=== PATIENT | female | born 1975 | race Two or more races ===

== ENCOUNTER 2019-04-16 20:39 | Emergency (ER) | payer OTHER, MEDICAID ==
[~2019-04-16] VITALS: Ht 162.6 cm; Wt 64.4 kg
[2019-04-16 21:19] VITALS: BP 120/81
[2019-04-16] MEDS ORDERED: DexAMETHasone SOD PHOS 10MG/1ML VIAL INJ IM ONE (23:45)
[2019-04-16] MEDS ORDERED: HYDROcodone-ACET 10/325MG TAB PO ONE (23:45)
[2019-04-16] MEDS ORDERED: BACLOFEN 10 MG TAB PO ONE (23:45)
== END 2019-04-17 00:46 | disposition home or self-care (01) ==
LOC: ER 20:39
DX: S33.5XXA Sprain of ligaments of lumbar spine, initial encounter (principal); Z88.6 Allergy status to analgesic agent; Z88.8 Allergy status to other drugs, medicaments and biological substances; X58.XXXA Exposure to other specified factors, initial encounter; Y93.9 Activity, unspecified; Y99.8 Other external cause status; Y92.89 Other specified places as the place of occurrence of the external cause
CPT/HCPCS: 72100; 96372; 99283; J1100; J7030

== ENCOUNTER 2022-08-30 13:35 | Emergency (ER) | payer MEDICAID, OTHER ==
[~2022-08-30] VITALS: Ht 162.6 cm; Wt 72.5 kg
[2022-08-30 14:09] VITALS: BP 110/75
[2022-08-30] MEDS ORDERED: methylPREDNISolone SOD SUCC 125 MG/2 ML VL IM ONE (14:30)
[2022-08-30] MEDS ORDERED: ALBUTEROL SULF 2.5 MG/0.5ML(0.5%) NEB SOLN NEB ONE (14:30)
[2022-08-30] MEDS ORDERED: ALBUTEROL MEDNEB 2.5 mg/3ml NEB ONE (14:39)
[2022-08-30] MEDS ORDERED: PRED20TA2 PO (15:48)
[2022-08-30] MEDS ORDERED: AMOX-277 PO (15:48)
== END 2022-08-30 15:57 | disposition home or self-care (01) ==
LOC: ER 13:35
DX: J45.901 Unspecified asthma with (acute) exacerbation (principal); H65.93 Unspecified nonsuppurative otitis media, bilateral; F41.9 Anxiety disorder, unspecified
CPT/HCPCS: 71045; 96372; 99283; J2930

== ENCOUNTER 2022-09-03 21:06 | Emergency (ER) | payer MEDICAID ==
[~2022-09-03] VITALS: Ht 162.6 cm; Wt 70.5 kg
[~2022-09-03 21:06] MED LIST: AMOX-277 PO; PRED20TA2 PO
[2022-09-03] MEDS ORDERED: ALBUTEROL MEDNEB 2.5 mg/3ml NEB ONE (22:53)
[2022-09-03] MEDS ORDERED: IPRATROPIUM BROM 0.5 MG/2.5ML INH SOL NEB ONE (23:00)
[2022-09-03] MEDS ORDERED: ALBUTEROL SULF 2.5 MG/0.5ML(0.5%) NEB SOLN NEB ONE (23:00)
[2022-09-03] MEDS ORDERED: methylPREDNISolone SOD SUCC 125 MG/2 ML VL IM ONE (23:00)
[2022-09-03] MEDS ORDERED: FLUT1AER3 IN (23:41)
[2022-09-04 00:34] VITALS: BP 138/82
== END 2022-09-04 00:35 | disposition home or self-care (01) ==
LOC: ER 21:06
DX: J45.901 Unspecified asthma with (acute) exacerbation (principal); Z20.822 Contact with and (suspected) exposure to COVID-19
CPT/HCPCS: 36415; 71045; 87426; 87804; 94640; 96372; 99284; J2930; J7644

== ENCOUNTER 2023-03-06 00:39 | Emergency (ER) | payer MEDICAID ==
[~2023-03-06] VITALS: Ht 162.6 cm; Wt 69.6 kg
[~2023-03-06 00:39] MED LIST changes: -AMOX-277 PO; +AMOX875T4 PO; +FLUT1AER3 IN
[2023-03-06 01:07] VITALS: BP 117/62
[2023-03-06] MEDS ORDERED: TRIA0.02 TOP (03:50)
== END 2023-03-06 03:59 | disposition home or self-care (01) ==
LOC: ER 00:39
DX: L30.9 Dermatitis, unspecified (principal); J45.909 Unspecified asthma, uncomplicated; Z79.899 Other long term (current) drug therapy; Z88.6 Allergy status to analgesic agent

== ENCOUNTER 2023-04-16 20:31 | Emergency (ER) | payer MEDICAID ==
[~2023-04-16] VITALS: Ht 162.6 cm; Wt 71.3 kg
[~2023-04-16 20:31] MED LIST changes: +TRIA0.02 TOP
[2023-04-17] MEDS ORDERED: ONDANSETRON ODT 4 MG TAB PO ONE (01:00)
[2023-04-17] MEDS ORDERED: HYDROcodone-ACET 5/325MG TAB PO ONE (01:00)
[2023-04-17 01:05] VITALS: BP 105/65; PULSE 80; RESP 16; TEMP 97.9; O2SAT 97
== END 2023-04-17 01:37 | disposition home or self-care (01) ==
LOC: ER 20:31
DX: M25.522 Pain in left elbow (principal); J45.909 Unspecified asthma, uncomplicated; Z88.6 Allergy status to analgesic agent; Z79.899 Other long term (current) drug therapy
CPT/HCPCS: 73030; 73080; 99284; Q0162

== ENCOUNTER 2024-06-18 18:20 | Inpatient (IN) | payer MEDICAID ==
[~2024-06-18] VITALS: Ht 162.6 cm; Wt 74.5 kg
[2024-06-18] MEDS: ALBUTEROL SULF 2.5 MG/0.5ML(0.5%) NEB SOLN NEB ONE (19:01)
[2024-06-18] MEDS: IPRATROPIUM BROM 0.5 MG/2.5ML INH SOL NEB ONE (19:01)
[2024-06-18 19:25] LABS: Eosinophils # (auto) 0 10 ^3/uL (0-0.8); Monocytes # (auto) 0.4 10 ^3/uL (0-1.3); Monocytes % (auto) 6.8 % (0.0-12.0); Nucleated Red Blood Cells % 0.4 %; White Blood Cell 5.8 10^3/uL (4.4-10.8)
[2024-06-18 19:29] LABS: Basophils # (auto) 0.1 10 ^3/uL (0-0.2); Eosinophils % (auto) 0.4 % (0.0-7.0); Hematocrit 18.1 % (36.0-46.0); Lymphocytes # (auto) 1.9 10 ^3/uL (0.4-5.4); Lymphocytes % (auto) 32.2 % (10.0-50.0); Mean Corpuscular Hemoglobin 16.1 pg (28.0-32.0); Mean Corpuscular Hgb Conc. 29.8 g/dL (32.0-36.0); Neutrophils # (auto) 3.4 10 ^3/uL (1.6-8.6); Neutrophils % (auto) 59.6 % (37.0-80.0); Platelet Count (auto) 495 10^3/uL (140-450); Red Blood Cells 3.35 10^6/uL (4.0-5.20); Red Cell Distribution Width 18.5 % (11.8-14.3)
[2024-06-18 19:33] LABS: Hemoglobin 5.4 g/dL (12.2-16.2)
[2024-06-18 19:38] LABS: Albumin 4.6 g/dL (3.2-4.8); Alkaline Phosphatase 82 U/L (46-116); Anion Gap 8 (5-15); Aspartate Aminotransferase 11 U/L (13-40); BUN/Creatinine Ratio 20.6 (10.0-20.0); Blood Urea Nitrogen 13 mg/dL (9-23); Calcium 9.5 mg/dL (8.7-10.4); Carbon Dioxide 23 mmol/L (20-31); Chloride 106 mmol/L (98-107); Glucose 112 mg/dL (74-106); Lipase 30 U/L (12-53); Potassium 3.4 mmol/L (3.5-5.1); Sodium 137 mmol/L (136-145)
[2024-06-18 19:39] LABS: Bilirubin, Total 0.4 mg/dL (0.2-1.0); Total Protein 7.6 g/dL (5.7-8.2)
[2024-06-18 19:58] LABS: Alanine Aminotransferase < 9 U/L (7-40)
[2024-06-18 20:14] LABS: % Iron Saturation 3.7 % (15-50)
[2024-06-18 20:15] LABS: Hypochromia Marked; Platelet Estimate Increased
[2024-06-18 20:25] LABS: Ferritin 1.8 ng/mL (10-291)
[2024-06-18 21:30] VITALS: BP 105/56; PULSE 83; RESP 13; TEMP 97.7
[2024-06-18 21:45] VITALS: BP 107/56; PULSE 91; RESP 15; TEMP 97.7
[2024-06-18 22:00] VITALS: BP 105/64; PULSE 89; RESP 14; TEMP 97.9
[2024-06-18 22:08] LABS: Urine Bacteria None Seen /hpf (None Seen)
[2024-06-18 22:18] LABS: Urine Blood Negative /uL (Negative); Urine Clarity Turbid (Clear); Urine Color Yellow (Yellow); Urine Mucus MODERATE (None Seen); Urine Protein, UAD TRACE (Negative); Urine Specific Gravity 1.029 (1.001-1.035); Urine Urobilinogen Normal (Negative); Urine WBC 4 /hpf (0 - 5); Urine pH 5.5 (5.0-9.0)
[2024-06-18] MEDS ORDERED: MORPHINE SULFATE INJ 2 MG/ml SYRG IV PRN ×2 (22:45)
[2024-06-18] MEDS ORDERED: NITROGLYCERIN 0.4 MG SL TAB SL PRN (22:45)
[2024-06-18] MEDS ORDERED: ACETAMINOPHEN 325 MG TAB PO PRN (22:45)
[2024-06-19] VITALS (13 sets, daily range): BP systolic 105–131; BP diastolic 59–77; PULSE 68–84; RESP 16–20; TEMP 97.6–98.9; O2SAT 97–100
[2024-06-19] MEDS ORDERED: DIPH25CA66 PO (03:25)
[2024-06-19 06:06] LABS: Eosinophils # (auto) 0 10 ^3/uL (0-0.8); Monocytes # (auto) 0.6 10 ^3/uL (0-1.3); Nucleated Red Blood Cells % 0.1 %; White Blood Cell 6.4 10^3/uL (4.4-10.8)
[2024-06-19 06:09] LABS: Basophils # (auto) 0 10 ^3/uL (0-0.2); Basophils % (auto) 0.7 % (0.0-2.0); Eosinophils % (auto) 0.6 % (0.0-7.0); Hematocrit 23.8 % (36.0-46.0); Hemoglobin 7.3 g/dL (12.2-16.2); Lymphocytes % (auto) 31.1 % (10.0-50.0); Mean Corpuscular Hemoglobin 19.2 pg (28.0-32.0); Mean Corpuscular Hgb Conc. 30.9 g/dL (32.0-36.0); Monocytes % (auto) 9.1 % (0.0-12.0); Neutrophils # (auto) 3.8 10 ^3/uL (1.6-8.6); Neutrophils % (auto) 58.5 % (37.0-80.0); Platelet Count (auto) 389 10^3/uL (140-450); Red Blood Cells 3.84 10^6/uL (4.0-5.20); Red Cell Distribution Width 29.5 % (11.8-14.3)
[2024-06-19 06:30] LABS: Alanine Aminotransferase < 9 U/L (7-40); Albumin 3.9 g/dL (3.2-4.8); Alkaline Phosphatase 71 U/L (46-116); Anion Gap 6 (5-15); Aspartate Aminotransferase 10 U/L (13-40); Bilirubin, Total 0.9 mg/dL (0.2-1.0); Blood Urea Nitrogen 13 mg/dL (9-23); Calcium 9.2 mg/dL (8.7-10.4); Carbon Dioxide 27 mmol/L (20-31); Chloride 106 mmol/L (98-107); Glucose 105 mg/dL (74-106); Potassium 3.8 mmol/L (3.5-5.1); Sodium 139 mmol/L (136-145); Total Protein 6.6 g/dL (5.7-8.2)
[2024-06-19 06:32] LABS: Hypochromia Moderate
[2024-06-19 06:33] LABS: Platelet Estimate Adequate; Target Cell FEW
[2024-06-19] MEDS: IRON SUCROSE COMPLEX 100 ML IV SCH (12:00)
[2024-06-19] MEDS: ACETAMINOPHEN 325 MG TAB PO PRN (14:34)
[2024-06-19 15:29] LABS: COVID19 ANTIGEN SOFIA FIA NEGATIVE (NEGATIVE); Rapid Influenza A Negative (Negative); Rapid Influenza B Negative (Negative)
[2024-06-20] VITALS (8 sets, daily range): BP systolic 107–125; BP diastolic 53–75; PULSE 68–97; RESP 16–20; TEMP 98.2–98.5; O2SAT 98–100
[2024-06-20] MEDS ORDERED: IBUP-1456 PO (08:42)
[2024-06-20] MEDS ORDERED: DOCU-94 PO (08:42)
[2024-06-20] MEDS ORDERED: ZOFR4T PO (08:42)
[2024-06-20] MEDS ORDERED: HYDR-4072 PO (08:42)
[2024-06-20] MEDS: ACETAMINOPHEN/CODEINE#3 (300/30mg) TAB PO PRN (11:28)
[2024-06-20] MEDS ORDERED: FER325T PO (11:49)
[2024-06-21 11:14] LABS: Folate (Folic Acid) 13.88 ng/mL (>5.38)
[2024-06-21 11:19] LABS: Follicle Stimulating Hormone 3.7 IU/L (SEE BELOW)
[2024-06-21 11:20] LABS: Leuteinizing Hormone 10.2 IU/L
== END 2024-06-20 19:36 | disposition home or self-care (01) | DRG 663 ==
LOC: EDBD 18:20 → ER 18:20 → TELE 22:35 → TELE-EAST 23:59
PROVIDERS: ADMIT Internal Medicine; ATTEND Internal Medicine
PROC: 30233N1 Transfusion of Nonautologous Red Blood Cells into Peripheral Vein, Percutaneous Approach (ICD-10-PCS; principal; 2024-06-18)
DX: D50.0 Iron deficiency anemia secondary to blood loss (chronic) (principal); I10 Essential (primary) hypertension; Z20.822 Contact with and (suspected) exposure to COVID-19; N92.0 Excessive and frequent menstruation with regular cycle; J45.909 Unspecified asthma, uncomplicated; Z79.899 Other long term (current) drug therapy; Z88.6 Allergy status to analgesic agent; Z82.49 Family history of ischemic heart disease and other diseases of the circulatory system
CPT/HCPCS: 36415; 71045; 76830; 76856; 80053; 81001; 81025; 82607; 82670; 82728; 82746; 83001; 83002; 83540; 83550; 83615; 83690; 83880; 84402; 84403; 84443; 84484; 85025; 85045; 86850; 86900; 86901; 86920; 87426; 87804; 93005; 93971; 94640; G0378; J1756

== ENCOUNTER 2024-06-22 20:00 | Emergency (ER) | payer MEDICAID ==
[~2024-06-22] VITALS: Ht 162.6 cm; Wt 72.0 kg
[~2024-06-22 20:00] MED LIST changes: +DIPH25CA66 PO; +DOCU-94 PO; +FER325T PO; +HYDR-4072 PO; +IBUP-1456 PO; +ZOFR4T PO
[2024-06-22 22:22] VITALS: PULSE 89; RESP 13; O2SAT 99
[2024-06-22 23:52] LABS: Basophils # (auto) 0 10 ^3/uL (0-0.2); Eosinophils # (auto) 0.1 10 ^3/uL (0-0.8)
[2024-06-22 23:53] LABS: Basophils % (auto) 0.4 % (0.0-2.0); Eosinophils % (auto) 0.9 % (0.0-7.0); Hematocrit 28.2 % (36.0-46.0); Hemoglobin 8.8 g/dL (12.2-16.2); Lymphocytes # (auto) 2.4 10 ^3/uL (0.4-5.4); Lymphocytes % (auto) 24.7 % (10.0-50.0); Mean Corpuscular Hemoglobin 20.2 pg (28.0-32.0); Mean Corpuscular Volume 65.3 fL (80.0-100.0); Monocytes # (auto) 0.4 10 ^3/uL (0-1.3); Monocytes % (auto) 4.5 % (0.0-12.0); Neutrophils # (auto) 6.8 10 ^3/uL (1.6-8.6); Neutrophils % (auto) 69.5 % (37.0-80.0); Platelet Count (auto) 420 10^3/uL (140-450); Red Blood Cells 4.33 10^6/uL (4.0-5.20); White Blood Cell 9.7 10^3/uL (4.4-10.8)
[2024-06-22] MEDS: HYDROcodone-ACET 10/325MG TAB PO ONE (23:59)
[2024-06-23 00:05] LABS: Red Cell Distribution Width 31.5 % (11.8-14.3)
[2024-06-23 00:06] LABS: Alkaline Phosphatase 83 U/L (46-116)
[2024-06-23 00:07] LABS: Albumin 4.7 g/dL (3.2-4.8); Anion Gap 5 (5-15); Aspartate Aminotransferase 10 U/L (13-40); BUN/Creatinine Ratio 20.7 (10.0-20.0); Bilirubin, Total 0.3 mg/dL (0.2-1.0); Blood Urea Nitrogen 12 mg/dL (9-23); Calcium 9.6 mg/dL (8.7-10.4); Carbon Dioxide 26 mmol/L (20-31); Chloride 106 mmol/L (98-107); Glucose 106 mg/dL (74-106); INR 0.98 (0.9-1.15); Partial Thromboplastin Time 24.3 SEC (24.5-34.5); Potassium 3.7 mmol/L (3.5-5.1); Prothrombin Time 10.4 sec (9.3-11.8); Sodium 137 mmol/L (136-145); Total Protein 7.7 g/dL (5.7-8.2)
[2024-06-23 00:09] LABS: Alanine Aminotransferase < 9 U/L (7-40)
[2024-06-23] MEDS: APIXABAN 5 MG TAB PO STA (00:13)
[2024-06-23] MEDS ORDERED: HYDR-4902 PO (00:28)
[2024-06-23] MEDS ORDERED: APIX5TAB PO (00:28)
[2024-06-23 00:35] LABS: Anisocytosis Marked; Hypochromia Marked; Platelet Estimate Adequate; Stomatocytes Moderate
[2024-06-23 01:05] VITALS: BP 112/82; RESP 14; TEMP 98; O2SAT 97
[2024-06-23 01:17] VITALS: PULSE 68
[2024-06-23] MEDS ORDERED: APIXABAN 5 MG TAB PO SCH (10:00)
[2024-06-30] MEDS ORDERED: APIXABAN 5 MG TAB PO SCH (10:00)
== END 2024-06-23 01:49 | disposition home or self-care (01) ==
LOC: ER 20:00
DX: I82.612 Acute embolism and thrombosis of superficial veins of left upper extremity (principal); J45.909 Unspecified asthma, uncomplicated; Z79.899 Other long term (current) drug therapy; Z88.6 Allergy status to analgesic agent
CPT/HCPCS: 36415; 80053; 84484; 85025; 85379; 85610; 85730; 93005; 93971